=== PATIENT | male | born 1990 ===

== ENCOUNTER 2024-01-25 21:03 | Observation (INO) ==
[2024-01-25] MEDS ORDERED: Ondansetron 4 mg VIAL 2 MG/ML 2 ml VIAL IV PRN (23:36)
[2024-01-25] MEDS: Prochlorperazine 5 mg/ml 2 ml VIAL (10 mg) IV PRN (23:48)
[2024-01-26] MEDS: fentaNYL 100 mcg/2 ml 50 MCG/ML VIAL IV SLOW PU PRN (01:33)
[2024-01-26] MEDS: HYDROmorphone 1 MG/1 ML SYRINGE IV SLOW PU ONE (03:29)
[2024-01-26 07:03] LABS: INR 1.05 (0.83-1.13)
[2024-01-26 07:08] LABS: ABS Eosinophils 0.1 10^3/uL (0.0-0.5); ABS Lymphocytes 1.9 10^3/uL (1.0-4.8); ABS Monocytes 0.8 10^3/uL (0.0-1.1); ABS Neutrophils 6.5 10^3/uL (1.5-7.6); Eosinophil % 0.8 %; Hematocrit 42.4 % (38-53); Hemoglobin 14.6 g/dL (13.2-16.3); Lymphocyte % 20.6 %; Mean Corpuscular Hemoglobin 31.5 pg (27-33); Mean Corpuscular Hgb Conc 34.5 g/dL (31-36); Mean Corpuscular Volume 91.3 fL (80-97); Mean Platelet Volume 8.6 fL (7.5-11.2); Platelet Count 200 10^3/uL (150-450); Red Blood Count 4.64 10^6/uL (4.06-5.63); Red Cell Distribution Width 13.2 % (12-17); White Blood Count 9.3 10^3/uL (3.6-10.2)
[2024-01-26] MEDS: HYDROmorphone 1 MG/1 ML SYRINGE IV SLOW PU PRN (07:51)
[2024-01-26 07:59] LABS: Calcium 8.7 mg/dL (8.6-10.3); Creatinine, Serum 0.89 mg/dL (0.67-1.17); Potassium 4.4 mmol/L (3.5-5.0); eGFR CKD-EPI 116.8 (>60)
[2024-01-26] MEDS ORDERED: fentaNYL 100 mcg/2 ml 50 MCG/ML VIAL ONE ×4 (09:02→14:20)
[2024-01-26] MEDS ORDERED: Midazolam 2 mg/2 ml VIAL 1 mg/ml 2 ml VIAL (2 mg) ONE ×2 (09:02→10:01)
[2024-01-26] MEDS ORDERED: Lidocaine 2% PF 5 ML VIAL ONE (09:03)
[2024-01-26] MEDS ORDERED: Rocuronium 50 mg VIAL 10 mg/ml 5 ml VIAL (50 mg) ONE ×2 (09:03→10:54)
[2024-01-26] MEDS ORDERED: Propofol 10 MG/ML 20 ML BTL ONE (09:03)
[2024-01-26] MEDS ORDERED: ceFAZolin VIAL VIAL ONE (10:31)
[2024-01-26] MEDS ORDERED: Dexamethasone IV 4 MG/ML VIAL 1 ml VIAL ONE (10:34)
[2024-01-26] MEDS ORDERED: Ondansetron 4 mg VIAL 2 MG/ML 2 ml VIAL ONE ×2 (10:34→13:04)
[2024-01-26] MEDS ORDERED: HYDROmorphone 0.5 MG/0.5 ML SYRINGE ONE (10:55)
[2024-01-26] MEDS ORDERED: Acetaminophen IV 1 GM/100ML 1,000 MG/100 ML BAG IV ONE (12:15)
[2024-01-26] MEDS: Acetaminophen IV 1 GM/100ML 1,000 MG/100 ML BAG IV ONE (12:17)
[2024-01-26] MEDS ORDERED: Naloxone 0.4 mg VIAL 0.4 mg/ml 1 ml VIAL IV PRN (12:48)
[2024-01-26] MEDS ORDERED: Metoclopramide 5 MG/ML VIAL (10 mg) IV PRN (12:48)
[2024-01-26] MEDS ORDERED: NS 0.45% 1000 ml BAG 1,000 ML IV SCH (13:00)
[2024-01-26] MEDS: Ondansetron 4 mg VIAL 2 MG/ML 2 ml VIAL IV PRN (13:06)
[2024-01-26] MEDS: fentaNYL 100 mcg/2 ml 50 MCG/ML VIAL IV PRN (13:07)
[2024-01-26] MEDS ORDERED: HYDROmorphone 1 MG/1 ML SYRINGE ONE (14:28)
[2024-01-26] MEDS: Buffered Lidocaine 1% SYRIN 1 ml INTRADERM ONE (15:55)
[2024-01-26] MEDS: Scopolamine 1 mg/72hr PATCH TRANSDERM ONE (15:55)
[2024-01-26] MEDS: Lactated Ringers 1000 ml BAG 1,000 ML IV SCH (16:13)
[2024-01-26] MEDS: ceFAZolin 2 GM in NS PREMIX 2 GM/100 ML BAG IVPB SCH (17:27)
[2024-01-27 09:42] VITALS: BP 121/79
[2024-01-27] MEDS: Enoxaparin 40 MG/0.4 ML SYR SUBCUT SCH (09:53)
== END 2024-01-27 11:36 | disposition home or self-care (01) ==
LOC: INTOOBSV 23:01 → SSU 23:01 → SUATTDRO 23:06
PROVIDERS: ADMIT Student in an Organized Health Care Education/Training Program; ATTEND Orthopaedic Surgery